=== PATIENT | female | born 1965 | race Caucasian/White ===

== ENCOUNTER 2017-04-24 00:02 | Emergency (ER) | payer BC, OTHER ==
[2017-04-24 00:15] VITALS: BP 149/81; PULSE 112; RESP 18; TEMP 98.7; O2SAT 93
--- NOTE | 2017-04-24 00:29 | PD ---
HPI Chief Complaint: Psychiatric Symptoms Time Seen by Provider: 00:24 Travel History International Travel<30 days: No Contact w/Intl Traveler<30days: No History of Present Illness HPI Patient comes in under a Mayer act by police for allegedly trying to kill herself by overdosing on pills. Per Mayer act she took 23 pills. Patient states she took 2 of her Lunesta as she was wanting to go to sleep and she normally takes 1. Patient denies any homicidal or suicidal ideations. Patient is upset that she was here. States that her girlfriend is mean to her and that is why she had her Mayer acted. Patient denies any medical concerns at this time. Denies any chest pain, shortness of breath, abdominal pain, nausea, vomiting or fevers. PFSH Past Medical History Medical History: Unable to Obtain Medical other: Yes (PT UNWILLING TO ANSWER QUESTIONS AT THIS TIME) Tetanus Vaccination: Unknown ?: Unknown Past Surgical History Surgical History: Unable to Obtain Social History Alcohol Use: Yes Tobacco Use: No Substance Use: No (UNABLE TO OBTAIN) Allergies-Medications (Allergen,Severity, Reaction): Coded Allergies: UNOBTAINABLE (Unverified , 04/24/17) PT UNWILLING TO ANSWER Reported Meds & Prescriptions Reported Meds & Active Scripts Active Reported [Hcg] 500 Unit SL Dexilant (Dexlansoprazole) 60 Mg bp 60 Mg PO DAILY Ondansetron (Ondansetron HCl) 8 Mg Tab 8 Mg PO TID PRN Bupropion HCl 100 Mg Tab 300 Mg PO DAILY Eszopiclone 2 Mg Tab 2 Mg PO HS PRN Lomaira (Phentermine HCl) 8 Mg Tab 37.5 Mg PO DAILY Review of Systems Except as stated in HPI: all other systems reviewed are Neg Physical Exam Narrative GENERAL: Well-developed, overly nourished, in no acute distress, and non-ill appearing. Patient is wide awake and talking nonstop. SKIN: Focused skin assessment warm and dry. HEAD: Atraumatic. Normocephalic. EYES: Pupils equal and round. EOMI. No scleral icterus. No injection or drainage. ENT: No nasal bleeding or discharge. Mucous membranes pink and moist. NECK: Trachea midline. Supple. No nuclear rigidity. CARDIOVASCULAR: Regular rate and rhythm. No murmur appreciated. RESPIRATORY: No accessory muscle use. No respiratory distress. Clear to auscultation. Breath sounds equal bilaterally. GASTROINTESTINAL: Abdomen soft, non-tender, nondistended, and no guarding. Hepatic and splenic margins not palpable. Normal bowel sounds 4. No pulsatile mass. MUSCULOSKELETAL: No obvious deformities. No clubbing. No cyanosis. No edema. Full range of motion. NEUROLOGICAL: Awake and alert. No obvious cranial nerve deficits. Motor grossly within normal limits. Normal speech. PSYCHIATRIC: Insight and judgment normal. Data Data Last Documented VS Vital Signs Date Time Temp Pulse Resp B/P Pulse Ox O2 Delivery O2 Flow Rate FiO2 04/24/17 00:15 98.7 112 18 149/81 93 Orders Complete Blood Count With Diff (04/24/17 00:16) Comprehensive Metabolic Panel (04/24/17 00:16) Urinalysis - C+S If Indicated (04/24/17 00:16) Electrocardiogram (04/24/17 00:16) Psych Screen (04/24/17 00:16) Drug Screen, Random Urine (04/24/17 00:16) Alcohol (Ethanol) (04/24/17 00:16) Salicylates (Aspirin) (04/24/17 00:16) Tylenol (Acetaminophen) (04/24/17 00:16) Iv Access Insert/Monitor (04/24/17 00:16) Ecg Monitoring (04/24/17 00:16) Oximetry (04/24/17 00:16) Acetaminophen (Tylenol) (04/24/17 01:45) Labs Laboratory Tests Test 04/24/17 00:55 White Blood Count 8.2 TH/MM3 Red Blood Count 4.78 MIL/MM3 Hemoglobin 13.6 GM/DL Hematocrit 41.1 % Mean Corpuscular Volume 85.9 FL Mean Corpuscular Hemoglobin 28.5 PG Mean Corpuscular Hemoglobin 33.1 % Concent Red Cell Distribution Width 15.1 % Platelet Count 376 TH/MM3 Mean Platelet Volume 8.0 FL Neutrophils (%) (Auto) 64.3 % Lymphocytes (%) (Auto) 25.6 % Monocytes (%) (Auto) 5.9 % Eosinophils (%) (Auto) 3.1 % Basophils (%) (Auto) 1.1 % Neutrophils # (Auto) 5.2 TH/MM3 Lymphocytes # (Auto) 2.1 TH/MM3 Monocytes # (Auto) 0.5 TH/MM3 Eosinophils # (Auto) 0.2 TH/MM3 Basophils # (Auto) 0.1 TH/MM3 CBC Comment DIFF FINAL Differential Comment Sodium Level 137 MEQ/L Potassium Level 3.4 MEQ/L Chloride Level 103 MEQ/L Carbon Dioxide Level 21.7 MEQ/L Anion Gap 12 MEQ/L Blood Urea Nitrogen 10 MG/DL Creatinine 0.94 MG/DL Estimat Glomerular Filtration 63 ML/MIN Rate Random Glucose 100 MG/DL Calcium Level 9.1 MG/DL Total Bilirubin 0.3 MG/DL Aspartate Amino Transf 151 U/L (AST/SGOT) Alanine Aminotransferase 180 U/L (ALT/SGPT) Alkaline Phosphatase 148 U/L Total Protein 7.9 GM/DL Albumin 3.7 GM/DL Salicylates Level LESS THAN 1.7 MG/DL Acetaminophen Level LESS THAN 2.0 MCG/ML Ethyl Alcohol Level 192 MG/DL MDM Medical Decision Making Medical Screen Exam Complete: Yes Emergency Medical Condition: Yes Differential Diagnosis Homicidal, suicidal, depression, overdose, alcohol intoxication, other Narrative Course 0135 patient was Mayer acted by police at 17/12/12 yesterday has been awake and alert in the emergency department since is still weak currently asking for Tylenol. I will very low suspicion that overdosed on her Lunesta or other sedating medication. Patient was seen and examined. Labs were obtained and reviewed with the exception urine drug screen has patient's not given us a sample yet. Patient changed to ambulate around the room shows no signs of drowsiness. Patient medically cleared for further treatment and evaluation by psych. Final disposition per psych. Diagnosis Primary Impression: Alcohol intoxication Qualified Code: F10.920 - Alcohol intoxication, uncomplicated Additional Impression: Medical clearance for psychiatric admission Condition: Stable Troy Peña Apr 24, 2017 00:28
[2017-04-24] MEDS ORDERED: ESZO1TAB3 PO (01:12)
[2017-04-24] MEDS ORDERED: HCG SL (01:12)
[2017-04-24] MEDS ORDERED: ONDA1TAB17 PO (01:12)
[2017-04-24] MEDS ORDERED: BUPR100T4 PO (01:12)
[2017-04-24] MEDS ORDERED: PHEN-556 PO (01:12)
[2017-04-24] MEDS ORDERED: DEXI60CA2 PO (01:12)
[2017-04-24 01:18] LABS: AUTOMATED NEUTROPHIL # 5.2 TH/MM3 (1.8-7.7); BASOPHIL # 0.1 TH/MM3 (0-0.2); BASOPHIL % 1.1 % (0.0-2.0); EOSINOPHIL # 0.2 TH/MM3 (0-0.4); EOSINOPHIL % 3.1 % (0.0-4.0); HEMATOCRIT 41.1 % (35.0-46.0); HEMO FLAGS DIFF FINAL; LYMPH % 25.6 % (9.0-44.0); LYMPHOCYTE # 2.1 TH/MM3 (1.0-4.8); MEAN CELL VOLUME 85.9 FL (80.0-100.0); MEAN CORPUSCULAR HEMOGLOBIN 28.5 PG (27.0-34.0); MEAN CORPUSCULAR HGB CONC 33.1 % (32.0-36.0); MONO % 5.9 % (0.0-8.0); NEUT % 64.3 % (16.0-70.0); PLATELET COUNT 376 TH/MM3 (150-450); RED BLOOD COUNT 4.78 MIL/MM3 (4.00-5.30); RED CELL DISTRIBUTION WIDTH 15.1 % (11.6-17.2); WHITE BLOOD COUNT 8.2 TH/MM3 (4.0-11.0)
[2017-04-24 01:41] LABS: ANION GAP 12 MEQ/L (5-15)
[2017-04-24] MEDS ORDERED: ACETAMINOPHEN 500 MG CPLT PO ONE (01:45)
[2017-04-24 01:58] LABS: ALKALINE PHOSPHATASE 148 U/L (45-117); ALT (GPT) 180 U/L (10-53); AST (GOT) 151 U/L (15-37); BICARBONATE 21.7 MEQ/L (21.0-32.0); BLOOD UREA NITROGEN 10 MG/DL (7-18); CHLORIDE 103 MEQ/L (98-107); GLOMERULAR FILTRATION RATE 63 ML/MIN (>89); POTASSIUM 3.4 MEQ/L (3.5-5.1); SODIUM (NA) 137 MEQ/L (136-145); TOTAL BILIRUBIN ADULT 0.3 MG/DL (0.2-1.0)
[2017-04-24 01:59] LABS: ACETAMINOPHEN LESS THAN 2.0 MCG/ML (10.0-30.0)
[2017-04-24 04:01] LABS: AMPHETAMINE, URINE NEG (NEG); BARBITURATES, URINE NEG (NEG); COCAINE, URINE NEG (NEG)
[2017-04-24 10:21] VITALS: BP 137/89; PULSE 103; RESP 20; O2SAT 97
--- NOTE | 2017-04-24 16:17 | PD.PSY.CON ---
Provisional Diagnosis Admission Date Meldrim I. Alcohol induced mood disorder, alcohol use disorder, PTSD Meldrim II. Unspecified personality disorder Meldrim III. No significant medical history History of Present Illness Service Psychiatry Consult Requested By Primary Care Physician Unknown HPI The patient is a 51-year-old woman, domiciled with her girlfriend, no kids, employed, with psychiatric history of PTSD, anxiety, no previous psychiatric hospitalizations, she has established outpatient care, she is on Wellbutrin, clonazepam, history of poor impulse control, suicide attempts, no significant medical history, who comes in under a Mayer act by police for allegedly trying to kill herself by overdosing on pills. Per Mayer act she took 23 pills. Patient states she took 2 of her Lunesta as she was wanting to go to sleep and she normally takes 1. Patient denies any homicidal or suicidal ideations. Patient is upset that she was here. States that her girlfriend is mean to her and that is why she had her Mayer acted. On psychiatric evaluation patient is calm, cooperative, she says that she was just upset with her girlfriend. They had an argument and she wanted to improve her point with a suicidal gesture "I did not really took all those pills". She reports that she was also drunk. Patient reports history of similar episodes in the past. At this moment she denies suicidal and homicidal ideation, she denies visual and auditory hallucinations. He is logical, coherent and relevant, oriented 3, no attention deficit, no fluctuation of consciousness, no significant cognitive impairment present. No withdrawal symptoms at this moment, patient is clinically sober. She reports almost daily use of alcohol, denies the use of illicit drugs. Review of Systems Constitutional: DENIES: Diaphoretic episodes, Fatigue, Fever, Weight gain, Weight loss, Chills, Dizziness, Change in appetite, Night Sweats Endocrine: DENIES: Abnorml menstrual pattern, Heat/cold intolerance, Polydipsia , Polyuria, Polyphagia Eyes: DENIES: Blurred vision, Diplopia, Eye inflammation, Eye pain, Vision loss , Photosensitivity, Double Vision Ears, nose, mouth, throat: DENIES: Tinnitus, Hearing loss, Vertigo, Nasal discharge, Oral lesions, Throat pain, Hoarseness, Ear Pain, Running Nose, Epistaxis, Sinus Pain, Toothache, Odynophagia Respiratory: DENIES: Apneas, Cough, Snoring, Wheezing, Hemoptysis, Sputum production, Shortness of breath Cardiovascular: DENIES: Chest pain, Palpitations, Syncope, Dyspnea on Exertion , PND, Lower Extremity Edema, Orthopnea, Claudication Gastrointestinal: DENIES: Abdominal pain, Black stools, Bloody stools, Constipation, Diarrhea, Nausea, Vomiting, Difficulty Swallowing, Anorexia Musculoskeletal: DENIES: Joint pain, Muscle aches, Stiffness, Joint Swelling, Back pain, Neck pain Integumentary: DENIES: Abnormal pigmentation, Pruritus, Rash, Nail changes, Breast masses, Breast skin changes, Nipple discharge Hematologic/lymphatic: DENIES: Bruising, Lymphadenopathy Immunologic/allergic: DENIES: Eczema, Urticaria Neurologic: DENIES: Abnormal gait, Headache, Localized weakness, Paresthesias, Seizures, Speech Problems, Tremor, Poor Balance Psychiatric: DENIES: Anxiety, Confusion, Mood changes, Depression, Hallucinations, Agitation, Suicidal Ideation, Homicidal Ideation, Delusions Past Family Social History Coded Allergies: UNOBTAINABLE (Unverified , 04/24/17) PT UNWILLING TO ANSWER Reported Medications [Hcg] No Conflict [id number] Unit SL 04/24/17 Dexlansoprazole (Dexilant)60 Mg bp60 Mg PO DAILY 04/24/17 Ondansetron 8 Mg Tab8 Mg PO TID PRN (Nausea/Vomiting) Ref 0 04/24/17 Bupropion HCl 100 Mg [id number] Mg PO DAILY Ref 0 04/24/17 Eszopiclone 2 Mg Tab2 Mg PO HS PRN (INSOMNIA) #30 TAB Ref 0 04/24/17 Phentermine (Lomaira)8 Mg Tab37.5 Mg PO DAILY #90 TAB Ref 0 04/24/17 Family History Patient denies family psychiatric history Social History Patient was born and raising [facility] with her friend, no kids , 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 2) Verbal communication Physical Exam Vital Signs Vital Signs Date Time Temp Pulse Resp B/P Pulse Ox O2 Delivery O2 Flow Rate FiO2 04/24/17 10:21 103 20 137/89 97 Room Air 04/24/17 00:15 98.7 Lab Results Labs Laboratory Tests Test 04/24/17 00:55 White Blood Count 8.2 TH/MM3 Red Blood Count 4.78 MIL/MM3 Hemoglobin 13.6 GM/DL Hematocrit 41.1 % Mean Corpuscular Volume 85.9 FL Mean Corpuscular Hemoglobin 28.5 PG Mean Corpuscular Hemoglobin 33.1 % Concent Red Cell Distribution Width 15.1 % Platelet Count 376 TH/MM3 Mean Platelet Volume 8.0 FL Neutrophils (%) (Auto) 64.3 % Lymphocytes (%) (Auto) 25.6 % Monocytes (%) (Auto) 5.9 % Eosinophils (%) (Auto) 3.1 % Basophils (%) (Auto) 1.1 % Neutrophils # (Auto) 5.2 TH/MM3 Lymphocytes # (Auto) 2.1 TH/MM3 Monocytes # (Auto) 0.5 TH/MM3 Eosinophils # (Auto) 0.2 TH/MM3 Basophils # (Auto) 0.1 TH/MM3 CBC Comment DIFF FINAL Differential Comment Sodium Level 137 MEQ/L Potassium Level 3.4 MEQ/L Chloride Level 103 MEQ/L Carbon Dioxide Level 21.7 MEQ/L Anion Gap 12 MEQ/L Blood Urea Nitrogen 10 MG/DL Creatinine 0.94 MG/DL Estimat Glomerular Filtration 63 ML/MIN Rate Random Glucose 100 MG/DL Calcium Level 9.1 MG/DL Total Bilirubin 0.3 MG/DL Aspartate Amino Transf 151 U/L (AST/SGOT) Alanine Aminotransferase 180 U/L (ALT/SGPT) Alkaline Phosphatase 148 U/L Total Protein 7.9 GM/DL Albumin 3.7 GM/DL Salicylates Level LESS THAN 1.7 MG/DL Acetaminophen Level LESS THAN 2.0 MCG/ML Ethyl Alcohol Level 192 MG/DL Mental Status Examination Appearance woman, [facility], age appearing, she is calm and cooperative Speech: Unremarkable Orientation: x3 Memory: Unremarkable Thought Process: Logical Hallucination Type: None Suicidal Ideation: No Homicidal Ideation: No Previous Homicide Attempts: No Judgment: WNL Affect: Good Mood: Appropriate Motor Activity: Normal gait Assessment & Plan Problem List: (1) Alcohol intoxication ICD Code: F10.929 (2) Alcohol abuse with alcohol-induced mood disorder Assessment & Plan: At the moment of this evaluation the patient does not present any significant, acute, concerning symptomatology of depression, anxiety , psychosis. The patient denies suicidal and homicidal ideation, she denies also visual and auditory hallucinations. Recent suicidal gesture of taking pills seems to be secondary to character structure, manipulative behavior, respiratory aggravated by acute alcohol intoxication. Patient does not meet criteria for psychiatric admission at this moment. Patient would benefit of detox/rehabilitation, that was offered to her, but she declined. Extensive support, motivational psychoeducation provided. Mayer act will be lifted. ICD Code: F10.14 Assessment & Plan Estimated LOS: days Problem Qualifiers (1) Alcohol intoxication: Qualified Code: F10.920 - Alcohol intoxication, uncomplicated Williams Aguero MD Apr 24, 2017 16:17
== END 2017-04-24 13:07 | disposition home or self-care (01) ==
LOC: NEPD 00:02 → NEPJ 13:07
DX: F10.129 Alcohol abuse with intoxication, unspecified (principal); T42.6X2A Poisoning by other antiepileptic and sedative-hypnotic drugs, intentional self-harm, initial encounter; R53.1 Weakness; Z79.899 Other long term (current) drug therapy
CPT/HCPCS: 80053; 80307; 85025; 99284